=== PATIENT | female | born 1980 | race Caucasian/White ===

== ENCOUNTER 2018-07-05 21:15 | Emergency (ER) | payer OTHER, MEDICAID ==
[~2018-07-05] VITALS: Ht 152.4 cm; Wt 99.8 kg
[~2018-07-05 21:15] MED LIST: ALBUTEROL NEB INH; ALBUTEROL2.5 MG/31 INH; AMOXICILLIN 50500 MG PO; DOXYCYCLINE 10100 M1 PO; MEDROLDOSEPACK PO; NOHOMEMEDICATIONS; NORCO 5-325 TA1 EACH PO; PENICILLIN V P500 MG PO; PHENERGAN 25 MG25 M1 PO; PREDNISONE 20 M20 M1 PO; PREDNISONE 20 M20 MG PO; TESSALON200 MG PO; TUSSIONEX PENN473 ML PO; VENTOLIN HFA 1818 GM INH; ZOFRAN ODT4 MG SUBLING; ZPAK PO
[2018-07-05 21:38] LABS: ABSOLUTE BASOPHILS 0.1 thou/uL (0.0-0.2); ABSOLUTE EOSINOPHILS 0.2 thou/uL (0.0-0.7); ABSOLUTE LYMPHOCYTES 3.7 thou/uL (0.8-5.3); ABSOLUTE MONOCYTES 0.6 thou/uL (0.0-1.2); ABSOLUTE NEUTROPHILS 7.1 thou/uL (1.6-8.1); BASOPHILS 1.2 %; EOSINOPHILS 1.7 %; HEMATOCRIT 44.3 % (37.0-47.0); HEMOGLOBIN 14.9 gm/dL (12.0-15.0); LYMPHOCYTES 31.3 %; MCH 28.9 pg (26.0-34.0); MCHC 33.6 g/dL (28.0-37.0); MPV 8.3 fl. (7.2-11.1); NUCLEATED RBCS 0 /100WBC; PLATELET COUNT* 359 thou/uL (150-400); POLYS 60.8 %; RBC 5.15 mil/uL (4.20-5.00); RDW-CV 13.4 % (10.5-14.5); WBC 11.7 thou/uL (4.0-11.0)
[2018-07-05 21:44] LABS: ANION GAP 10 mmol/L (7-16); BUN 11 mg/dL (7-18); CHLORIDE 102 mmol/L (98-107); CO2 26 mmol/L (21-32); CREATININE 0.8 mg/dL (0.6-1.3); GLUCOSE 91 mg/dL (70-99); POTASSIUM 3.2 mmol/L (3.5-5.1); SODIUM 138 mmol/L (136-145)
[2018-07-05 21:54] LABS: ALBUMIN 3.7 g/dL (3.4-5.0); ALKALINE PHOSPHATASE 86 U/L (46-116); LIPASE 105 U/L (73-393); NT-PRO BRAIN NAT PEPTIDE 25 pg/mL (<300); SGOT 12 U/L (15-37); SGPT 18 U/L (30-65); TOTAL BILIRUBIN 0.4 mg/dL (<0.1-1.0); TOTAL PROTEIN 8.3 g/dL (6.4-8.2); TROPONIN-I LEVEL <0.06 ng/mL (<0.06)
[2018-07-05] MEDS ORDERED: VENTOLIN HFA 1818 GM INH (22:37)
[2018-07-06 00:15] VITALS: BP 143/71
--- NOTE | 2018-07-06 09:52 | EKG ---
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
--- NOTE | 2018-07-06 09:52 | EKG ---
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
== END 2018-07-06 00:15 | disposition home or self-care (01) ==
LOC: M.ERS 21:15
PROVIDERS: Emergency Medicine Emergency Medical Services
DX: J40 Bronchitis, not specified as acute or chronic (principal); N80.9 Endometriosis, unspecified; Z98.890 Other specified postprocedural states; Z90.49 Acquired absence of other specified parts of digestive tract; Z90.710 Acquired absence of both cervix and uterus

== ENCOUNTER 2018-11-17 12:48 | Emergency (ER) | payer OTHER, MEDICAID ==
[~2018-11-17] VITALS: Ht 154.9 cm; Wt 111.1 kg
[2018-11-17 13:15] LABS: ABSOLUTE BASOPHILS 0.1 thou/uL (0.0-0.2); ABSOLUTE EOSINOPHILS 0.2 thou/uL (0.0-0.7); ABSOLUTE LYMPHOCYTES 2.1 thou/uL (0.8-5.3); ABSOLUTE MONOCYTES 0.5 thou/uL (0.0-1.2); ABSOLUTE NEUTROPHILS 5.7 thou/uL (1.6-8.1); BASOPHILS 1.1 %; HEMATOCRIT 42.8 % (37.0-47.0); HEMOGLOBIN 14.5 gm/dL (12.0-15.0); LYMPHOCYTES 24.2 %; MCH 28.4 pg (26.0-34.0); MCHC 33.8 g/dL (28.0-37.0); MONOCYTES 5.7 %; MPV 8.4 fl. (7.2-11.1); NUCLEATED RBCS 0 /100WBC; PLATELET COUNT* 327 thou/uL (150-400); RBC 5.09 mil/uL (4.20-5.00); RDW-CV 13.6 % (10.5-14.5); WBC 8.6 thou/uL (4.0-11.0)
[2018-11-17 13:23] LABS: APTT 29.8 Seconds (25.0-31.3); PROTIME 9.8 Seconds (9.20-11.50)
[2018-11-17 13:31] LABS: ANION GAP 9 mmol/L (7-16); BUN 11 mg/dL (7-18); CALCIUM 8.6 mg/dL (8.5-10.1); CHLORIDE 106 mmol/L (98-107); CO2 26 mmol/L (21-32); CREATININE 0.7 mg/dL (0.6-1.3); GLUCOSE 94 mg/dL (70-99); POTASSIUM 3.7 mmol/L (3.5-5.1); SODIUM 141 mmol/L (136-145); TROPONIN-I LEVEL <0.06 ng/mL (<0.06)
[2018-11-17 13:41] LABS: ALBUMIN 3.4 g/dL (3.4-5.0); ALKALINE PHOSPHATASE 85 U/L (46-116); LIPASE 61 U/L (73-393); SGOT 13 U/L (15-37); SGPT 17 U/L (30-65); TOTAL BILIRUBIN 0.4 mg/dL (<0.1-1.0); TOTAL PROTEIN 7.7 g/dL (6.4-8.2)
[2018-11-17] MEDS ORDERED: ROBAXIN 750 MG750 M1 PO (13:45)
[2018-11-17] MEDS ORDERED: MEDROLDOSEPACK PO (13:45)
[2018-11-17] MEDS ORDERED: HYDROXYZINE HCL25 M1 PO (13:53)
[2018-11-17 14:04] VITALS: BP 124/79
--- NOTE | 2018-11-18 12:30 | EKG ---
[place] [address] ELECTROCARDIOGRAM REPORT Name: YENNY RAMOS Room: [facility]#: [id number] Admission: 11/17/18 Attend Phys: Discharge: 11/17/18 Date of : 76 Report #: [id number] THIS REPORT FOR: //name// [facility] ED Test Date: 2018-11-17 Test Time: 12:55:09 Pat Name: YENNY RAMOS Department: Room: Gender: F Bilingual Executive Assistant: JOSIE : 1980 Requested By: Jesi Mcdonald Order Number: [id number] MD: Charlie Esteban Measurements Intervals [place] Rate: 76 P: 54 [place]: 145 QRS: 63 QRSD: 92 T: 31 QT: 374 QTc: 421 Interpretive Statements Sinus rhythm Compared to ECG 07/05/2018 23:47:52 No significant changes Electronically Signed On 11-18-2018 12:30:13 CDT by Charlie Esteban [email or web address] <ELECTRONICALLY SIGNED> By: Charlie Esteban MD, [facility] 11/18/18 1230 1255 1255 Charlie Esteban MD, FACC /EPI
== END 2018-11-17 14:05 | disposition home or self-care (01) ==
LOC: M.ERS 12:48
PROVIDERS: Physician Assistant
DX: F41.9 Anxiety disorder, unspecified (principal); R07.2 Precordial pain; N80.9 Endometriosis, unspecified; Z90.49 Acquired absence of other specified parts of digestive tract; Z98.890 Other specified postprocedural states; Z90.710 Acquired absence of both cervix and uterus

== ENCOUNTER 2019-01-28 13:23 | Emergency (ER) | payer OTHER, MEDICAID ==
[~2019-01-28] VITALS: Ht 152.4 cm; Wt 108.9 kg
[~2019-01-28 13:23] MED LIST changes: +HYDROXYZINE HCL25 M1 PO; +ROBAXIN 750 MG750 M1 PO
[2019-01-28 13:58] LABS: ABSOLUTE BASOPHILS 0.1 thou/uL (0.0-0.2); ABSOLUTE EOSINOPHILS 0.1 thou/uL (0.0-0.7); ABSOLUTE LYMPHOCYTES 1.8 thou/uL (0.8-5.3); ABSOLUTE MONOCYTES 0.4 thou/uL (0.0-1.2); ABSOLUTE NEUTROPHILS 4.2 thou/uL (1.6-8.1); BASOPHILS 1.4 %; EOSINOPHILS 1.2 %; HEMATOCRIT 42.5 % (37.0-47.0); HEMOGLOBIN 14.4 gm/dL (12.0-15.0); LYMPHOCYTES 27.2 %; MCH 28.6 pg (26.0-34.0); MCHC 33.9 g/dL (28.0-37.0); MCV 84.5 fL (80.0-100.0); MONOCYTES 5.6 %; MPV 8.8 fl. (7.2-11.1); NUCLEATED RBCS 0 /100WBC; PLATELET COUNT* 309 thou/uL (150-400); POLYS 64.6 %; RBC 5.02 mil/uL (4.20-5.00); RDW-CV 13.3 % (10.5-14.5); WBC 6.5 thou/uL (4.0-11.0)
[2019-01-28 14:06] LABS: ANION GAP 11 mmol/L (7-16); BUN 8 mg/dL (7-18); CALCIUM 9.1 mg/dL (8.5-10.1); CHLORIDE 105 mmol/L (98-107); CO2 26 mmol/L (21-32); CREATININE 0.8 mg/dL (0.6-1.3); GLUCOSE 95 mg/dL (70-99); POTASSIUM 3.9 mmol/L (3.5-5.1); SODIUM 142 mmol/L (136-145)
[2019-01-28 14:15] LABS: ALBUMIN 3.6 g/dL (3.4-5.0); ALKALINE PHOSPHATASE 83 U/L (46-116); SGOT 13 U/L (15-37); SGPT 17 U/L (30-65); TOTAL BILIRUBIN 0.6 mg/dL (<0.1-1.0); TOTAL PROTEIN 7.9 g/dL (6.4-8.2); TROPONIN-I LEVEL <0.06 ng/mL (<0.06)
[2019-01-28 15:25] VITALS: BP 128/79
--- NOTE | 2019-01-29 10:54 | EKG ---
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: [facility] : 1980 Requested By: Tim Sepulveda Order Number: [id number] MD: Bradley Pedroza Measurements Intervals [place] Rate: 70 P: 34 [place]: 143 QRS: 53 QRSD: 99 T: 44 QT: 398 QTc: 430 Interpretive Statements Sinus rhythm Compared to ECG 11/17/2018 12:55:09 No significant changes Electronically Signed On 01-29-2019 10:53:55 CDT by Bradley Pedroza [email or web address] <ELECTRONICALLY SIGNED> By: Bradley Pedroza MD, [facility] 01/29/19 1053 1346 1346 Bradley Pedroza MD, FACC /EPI
== END 2019-01-28 15:26 | disposition home or self-care (01) ==
LOC: M.ERS 13:23
PROVIDERS: Physician Assistant
DX: F41.9 Anxiety disorder, unspecified (principal); R00.2 Palpitations; Z90.49 Acquired absence of other specified parts of digestive tract; Z90.710 Acquired absence of both cervix and uterus

== ENCOUNTER 2020-08-30 17:15 | Emergency (ER) | payer OTHER, MEDICAID ==
[~2020-08-30] VITALS: Ht 154.9 cm; Wt 113.4 kg
[2020-08-30] MEDS ORDERED: HYDROCODON-ACE1 EAC7 PO (18:33)
[2020-08-30 19:12] VITALS: BP 106/55
== END 2020-08-30 19:12 | disposition home or self-care (01) ==
LOC: M.ERS 17:15
DX: S86.811A Strain of other muscle(s) and tendon(s) at lower leg level, right leg, initial encounter (principal); N80.9 Endometriosis, unspecified; Z98.890 Other specified postprocedural states; Z90.49 Acquired absence of other specified parts of digestive tract; Z98.51 Tubal ligation status; Z90.710 Acquired absence of both cervix and uterus; W18.39XA Other fall on same level, initial encounter; Y93.89 Activity, other specified; Y92.89 Other specified places as the place of occurrence of the external cause; Y99.8 Other external cause status

== ENCOUNTER 2021-02-20 21:30 | Emergency (ER) | payer OTHER, MEDICAID ==
[~2021-02-20] VITALS: Ht 154.9 cm; Wt 113.4 kg
[~2021-02-20 21:30] MED LIST changes: +HYDROCODON-ACE1 EAC7 PO
[2021-02-20 22:07] LABS: URINE BILIRUBIN NEGATIVE (Negative); URINE BLOOD NEGATIVE (Negative); URINE CLARITY CLEAR; URINE COLOR YELLOW; URINE GLUCOSE-RANDOM NEGATIVE (Negative); URINE KETONES NEGATIVE (Negative); URINE LEUKOCYTES-REFLEX NEGATIVE (Negative); URINE NITRITE-REFLEX NEGATIVE (Negative); URINE PROTEIN NEGATIVE (Negative); URINE UROBILINOGEN 0.2 E.U./dl (0.2-1.0)
[2021-02-20] MEDS ORDERED: CEPHALEXIN500 MG PO (22:51)
[2021-02-20] MEDS ORDERED: PYRIDIUM100 M1 PO (22:51)
[2021-02-20 22:59] VITALS: BP 122/79
== END 2021-02-20 22:59 | disposition home or self-care (01) ==
LOC: M.ERS 21:30
PROVIDERS: Personal Emergency Response Attendant
DX: R30.0 Dysuria (principal); N80.9 Endometriosis, unspecified; Z98.890 Other specified postprocedural states; Z90.49 Acquired absence of other specified parts of digestive tract; Z98.51 Tubal ligation status; Z90.710 Acquired absence of both cervix and uterus